=== PATIENT | male | born 1945 | race Two or more races ===

== ENCOUNTER 2021-01-20 08:00 | Outpatient (CLI) | payer OTHER ==
[~2021-01-20 08:00] MED LIST: INTESTINEX680 MG PO; LEVSIN/SL0.125 MG SL; PERCOCET 5/3251 TAB PO; PROTONIX40 MG PO; TESSALON PERLE100 M1 PO; XANAX1 MG
== END 2021-01-20 08:30 | disposition home or self-care (01) ==
LOC: PPH VACUNA 08:00
PROVIDERS: ATTEND Emergency Medicine Pediatric Emergency Medicine
DX: Z23 Encounter for immunization (principal)

== ENCOUNTER 2021-02-11 11:37 | Outpatient (CLI) | payer OTHER | END 2021-02-11 11:42 | disposition home or self-care (01) | LOC: SONOGRAMA 11:37 | PROVIDERS: ATTEND General Practice | DX: E04.1 Nontoxic single thyroid nodule (principal) ==

== ENCOUNTER 2021-06-30 08:00 | Outpatient (CLI) | payer OTHER | END 2021-06-30 08:30 | disposition home or self-care (01) | LOC: PPH VACUNA 08:00 | PROVIDERS: ATTEND Emergency Medicine Pediatric Emergency Medicine | DX: Z23 Encounter for immunization (principal) ==

== ENCOUNTER 2021-09-03 10:37 | Outpatient (CLI) | payer OTHER | END 2021-09-03 11:00 | disposition home or self-care (01) | LOC: SONOGRAMA 10:37 | PROVIDERS: ATTEND Specialist | DX: R22.31 Localized swelling, mass and lump, right upper limb (principal) ==

== ENCOUNTER 2023-05-07 21:12 | Emergency (ER) | payer OTHER ==
[~2023-05-07] VITALS: Ht 182.9 cm; Wt 83.5 kg
[2023-05-07] MEDS ORDERED: KETOROLAC TROMETHAMINE 60 MG VIAL IM ONE (23:15)
== END 2023-05-08 01:14 | disposition home or self-care (01) ==
LOC: ER 21:12
DX: S82.042A Displaced comminuted fracture of left patella, initial encounter for closed fracture (principal); W10.0XXA Fall (on)(from) escalator, initial encounter; Y93.89 Activity, other specified; Y92.511 Restaurant or cafe as the place of occurrence of the external cause; F32.89 Other specified depressive episodes
CPT/HCPCS: 29515; 73560; 96372; 99283; J1885

== ENCOUNTER 2023-05-09 13:14 | Outpatient (CLI) | payer OTHER | END 2023-05-09 13:19 | disposition home or self-care (01) | LOC: RAD 13:14 | PROVIDERS: ATTEND Orthopaedic Surgery | DX: S82.032A Displaced transverse fracture of left patella, initial encounter for closed fracture (principal) ==

== ENCOUNTER 2023-05-09 14:37 | Outpatient (CLI) | payer OTHER | END 2023-05-09 14:44 | disposition home or self-care (01) | LOC: EKG 14:37 | PROVIDERS: ATTEND Internal Medicine | DX: Z13.6 Encounter for screening for cardiovascular disorders (principal) ==

== ENCOUNTER 2023-06-16 11:51 | Outpatient (CLI) | payer OTHER | END 2023-06-16 11:55 | disposition home or self-care (01) | LOC: RAD 11:51 | PROVIDERS: ATTEND Orthopaedic Surgery | DX: S82.032D Displaced transverse fracture of left patella, subsequent encounter for closed fracture with routine healing (principal) ==

== ENCOUNTER 2023-09-16 07:58 | Outpatient (CLI) | payer OTHER | END 2023-09-16 07:59 | disposition home or self-care (01) | LOC: RAD 07:58 | PROVIDERS: ATTEND Orthopaedic Surgery | DX: S82.032D Displaced transverse fracture of left patella, subsequent encounter for closed fracture with routine healing (principal) ==

== ENCOUNTER 2024-02-04 13:15 | Emergency (ER) | payer OTHER ==
[~2024-02-04] VITALS: Ht 180.3 cm; Wt 84.4 kg
[2024-02-04 18:06] LABS: HEMOGLOBIN 13.2 g/dL (13-16.00); PLATELET COUNT 158 K/uL (150-450); RED BLOOD COUNT 4.71 M/uL (4.00-6.00); RED CELL DISTRIBUTION WIDTH 13.5 % (11.5-14.5)
[2024-02-04 18:48] LABS: CALCIUM 9.5 mg/dL (8.5-10.1); CREATININE SERUM 1.04 mg/dL (0.70-1.30); GFR 69.43; POTASSIUM 4.56 mEq/L (3.5-5.1)
== END 2024-02-04 19:19 | disposition home or self-care (01) ==
LOC: ER 13:17
PROVIDERS: General Practice
DX: F41.8 Other specified anxiety disorders (principal)

== ENCOUNTER 2024-03-29 11:36 | Outpatient (CLI) | payer OTHER ==
[2024-03-29 12:53] LABS: HEMATOCRIT 40.1 % (39.0-48.0); HEMOGLOBIN 13.7 g/dL (13-16.00); MEAN CELL VOLUME 83.4 fL (80.0-100.00); MEAN CORPUSCULAR HEMOGLOBIN 28.4 pg (27.00-32.0); MEAN CORPUSCULAR HGB CONC 34.1 g/dl (32.0-36.0); PLATELET COUNT 140 K/uL (150-450); RED BLOOD COUNT 4.81 M/uL (4.00-6.00); RED CELL DISTRIBUTION WIDTH 13.3 % (11.5-14.5)
[2024-03-29 13:18] LABS: INR 1.05; PARTIAL THROMBOPLASTIN TIME 30.2 SECONDS (22.0-34.0); PROTHROMBIN TIME 11.4 SECONDS (9.0-11.5)
[2024-03-29 13:26] LABS: ALBUMIN 4.1 gm/dL (3.4-5.0); BILIRUBIN TOTAL 0.68 mg/dL (0.3-1.2); CALCIUM 9.4 mg/dL (8.5-10.1); CREATININE SERUM 0.96 mg/dL (0.70-1.30); GFR 76.15; GLOBULINA 3.6 G/DL (2.4-3.5); POTASSIUM 4.18 mEq/L (3.5-5.1); TOTAL PROTEIN 7.7 gm/dL (6.4-8.2)
[2024-03-29 13:43] LABS: % SATURACION 32.9 % (20-50); FERRITIN 128.1 NG/ML (26-388)
[2024-03-29 13:45] LABS: COL EPI 80 SECONDS (82-175)
[2024-03-29 13:53] LABS: FOLIC ACID > 20.00 ng/ml (4.78-20)
[2024-03-30 08:42] LABS: MANUAL PLATELET COUNT 244
[2024-03-30 08:52] LABS: PLATELET ESTIMATE NORMAL (NORMAL)
== END 2024-03-29 11:37 | disposition home or self-care (01) ==
LOC: LAB 11:36
PROVIDERS: ATTEND Internal Medicine Hematology & Oncology
DX: D50.8 Other iron deficiency anemias (principal); R79.9 Abnormal finding of blood chemistry, unspecified; I10 Essential (primary) hypertension; R74.02 Elevation of levels of lactic acid dehydrogenase [LDH]; K76.89 Other specified diseases of liver; D68.8 Other specified coagulation defects; D69.1 Qualitative platelet defects; D51.3 Other dietary vitamin B12 deficiency anemia; D69.49 Other primary thrombocytopenia; K80.00 Calculus of gallbladder with acute cholecystitis without obstruction; B18.2 Chronic viral hepatitis C; L41.3 Small plaque parapsoriasis; R73.01 Impaired fasting glucose

== ENCOUNTER 2024-04-09 08:12 | Outpatient (CLI) | payer OTHER | END 2024-04-09 08:13 | disposition home or self-care (01) | LOC: SONOGRAMA 08:12 | PROVIDERS: ATTEND Internal Medicine | DX: R74.01 Elevation of levels of liver transaminase levels (principal) ==